=== PATIENT | female | born 1935 | race Asian ===

== ENCOUNTER 2017-07-29 07:04 | Inpatient (IN) | payer MEDICARE, OTHER ==
[2017-07-29] VITALS (7 sets, daily range): BP systolic 129–154; BP diastolic 54–85
[~2017-07-29] VITALS: Ht 160 cm; Wt 59.0 kg
--- NOTE | 2017-07-29 07:12 | Emergency Room Report ---
History of Present Illness General Chief Complaint: General Complaint Source: Patient, EMS Present Illness HPI Patient is a 82-year-old female brought in by EMS after increased palpitations and shortness of breath. Patient had prior history of cardiac bypass. The patient noted have increased difficulty with palpitations. The patient had multiple medications. The patient was noted to have increased fever on the first day of illness. Patient stated she had recently been seen started on Tamiflu. She had not been vomiting or having diarrhea. She reports having cardiac bypass approximately 3 years ago Allergies: Coded Allergies: PENICILLINS (Verified Allergy, Unknown, 07/29/17) SULFA (SULFONAMIDE ANTIBIOTICS) (Verified Allergy, Unknown, 07/29/17) Patient History Past Medical History: CAD PSxH Narrative bypass surgery 3 years ago Reviewed Nursing Documentation: PMH: Agreed, PSxH: Agreed Nursing Documentation-PMH Past Medical History: No History, Except For Hx Cardiac Problems: Yes - BYPASS Hx Hypertension: Yes Review of Systems All Other Systems: negative except mentioned in HPI Physical Exam Vital Signs Date Time Temp Pulse Resp B/P (MAP) Pulse Ox O2 Delivery O2 Flow Rate FiO2 07/29/17 07:04 98.2 90 20 178/84 99 Room Air Sp02 EP Interpretation: reviewed, normal General Appearance: normal inspection, well appearing, no apparent distress, alert, GCS 15 Head: atraumatic ENT: normal ENT inspection, hearing grossly normal, normal voice Neck: normal inspection, full range of motion, supple, no bony tend Respiratory: normal inspection, lungs clear, normal breath sounds, no respiratory distress, no retraction, no wheezing Cardiovascular #1: regular rate, rhythm, no edema Gastrointestinal: normal inspection, normal bowel sounds, non tender, soft, no guarding, no hernia Genitourinary: no CVA tenderness Musculoskeletal: normal inspection, back normal, normal range of motion Neurologic: normal inspection, alert, oriented x3, responsive, city engineer III-XII nml as tested, motor strength/tone normal, speech normal Psychiatric: normal inspection, judgement/insight normal, mood/affect normal Skin: normal inspection, normal color, no rash Medical Decision Making Diagnostic Impression: Primary Impression: Palpitation Additional Impressions: Generalized weakness Atrial bigeminy Coronary artery disease ER Course Patient presented for palpitations. The differential diagnosis included was not limited to arrhythmia, thyroid storm, sepsis, anemia, myocardial infarction , alcohol withdrawal, stimulant abuse, caffeine overdose among others. Because of complexity of patient's case laboratory testing and imaging studies were ordered. Laboratory testing showed evidence of mild hypokalemia. Patient given oral potassium. EKG interpreted by me showed normal sinus rhythm with a rate of [address] or T wave changes QTC was 474. The patient was given IV magnesium. Dr. Zack Royal was contacted for inpatient management. This medical record is generated with [employer] lining maker hand software. There may be some lining maker hand discrepancies related to use of this software Labs Test 07/29/17 07:45 07/29/17 08:00 White Blood Count 3.1 K/UL (4.8-10.8) Red Blood Count 4.03 M/UL (4.20-5.40) Hemoglobin 13.5 G/DL (12.0-16.0) Hematocrit 39.0 % (37.0-47.0) Mean Corpuscular Volume 97 FL (80-99) Mean Corpuscular Hemoglobin 33.4 PG (27.0-31.0) Mean Corpuscular Hemoglobin Concent 34.5 G/DL (32.0-36.0) Red Cell Distribution Width 11.8 % (11.6-14.8) Platelet Count 224 K/UL (150-450) Mean Platelet Volume 6.6 FL (6.5-10.1) Neutrophils (%) (Auto) % (45.0-75.0) Lymphocytes (%) (Auto) % (20.0-45.0) Monocytes (%) (Auto) % (1.0-10.0) Eosinophils (%) (Auto) % (0.0-3.0) Basophils (%) (Auto) % (0.0-2.0) Differential Total Cells Counted 100 Neutrophils % (Manual) 46 % (45-75) Lymphocytes % (Manual) 43 % (20-45) Monocytes % (Manual) 9 % (1-10) Eosinophils % (Manual) 1 % (0-3) Basophils % (Manual) 1 % (0-2) Band Neutrophils 0 % (0-8) Platelet Estimate Adequate Platelet Morphology Normal Red Blood Cell Morphology Normal Sodium Level 143 MMOL/L (136-145) Potassium Level 3.3 MMOL/L (3.5-5.1) Chloride Level 106 MMOL/L (98-107) Carbon Dioxide Level 29 MMOL/L (21-32) Anion Gap 8 mmol/L (5-15) Blood Urea Nitrogen 15 mg/dL (7-18) Creatinine 0.9 MG/DL (0.55-1.30) Estimat Glomerular Filtration Rate mL/min (>60) Glucose Level 152 MG/DL (74-106) Lactic Acid Level 1.30 mmol/L (0.66-2.22) Calcium Level 9.3 MG/DL (8.5-10.1) Phosphorus Level 4.4 MG/DL (2.5-4.9) Magnesium Level 2.2 MG/DL (1.8-2.4) Total Bilirubin 0.3 MG/DL (0.2-1.0) Aspartate Amino Transf (AST/SGOT) 33 U/L (15-37) Alanine Aminotransferase (ALT/SGPT) 40 U/L (12-78) Alkaline Phosphatase 77 U/L (46-116) Total Creatine Kinase 198 U/L (26-308) Creatine Kinase MB 1.9 NG/ML (0.0-3.6) Creatine Kinase MB Relative Index 0.9 Troponin I 0.000 ng/mL (0.000-0.056) Total Protein 8.5 G/DL (6.4-8.2) Albumin 3.6 G/DL (3.4-5.0) Globulin 4.9 g/dL Albumin/Globulin Ratio 0.7 (1.0-2.7) Urine Color Pale yellow Urine Appearance Clear Urine pH 6 (4.5-8.0) Urine Specific [place] 1.010 (1.005-1.035) Urine Protein Negative (NEGATIVE) Urine Glucose (UA) Negative (NEGATIVE) Urine Ketones Negative (NEGATIVE) Urine Occult Blood 3+ (NEGATIVE) Urine Nitrite Negative (NEGATIVE) Urine Bilirubin Negative (NEGATIVE) Urine Urobilinogen Normal MG/DL (0.0-1.0) Urine Leukocyte Esterase Negative (NEGATIVE) Urine RBC 5-10 /HPF (0 - 2) Urine WBC 0-2 /HPF (0 - 2) Urine Squamous Epithelial Cells Occasional /LPF Urine Bacteria Occasional /HPF (NONE) EKG Diagnostic Results Rate: normal - 76 Rhythm: NSR ST Segments: no acute changes Last Vital Signs Date Time Temp Pulse Resp B/P (MAP) Pulse Ox O2 Delivery O2 Flow Rate FiO2 07/29/17 07:04 98.2 90 20 178/84 99 Room Air Status: unchanged Disposition: ADMITTED INPATIENT Condition: Serious Jose E Reina Jul 29, 2017 07:12
[2017-07-29] MEDS ORDERED: FENOFIBRATE43 MG ORAL (07:34)
[2017-07-29] MEDS ORDERED: PROMETHAZINE-D118 ML ORAL (07:34)
[2017-07-29] MEDS ORDERED: OMEGA-31000 M1 PO (07:34)
[2017-07-29] MEDS ORDERED: ATORVASTATIN CA40 MG ORAL (07:34)
[2017-07-29] MEDS ORDERED: FOLIC ACID1 MG ORAL (07:34)
[2017-07-29] MEDS ORDERED: NITROGLYCERIN0.4 MG SL (07:34)
[2017-07-29] MEDS ORDERED: OYSCO 500+D TA1 EAC1 PO (07:34)
[2017-07-29] MEDS ORDERED: CARVEDILOL3.125 MG ORAL (07:34)
[2017-07-29] MEDS ORDERED: OLMESARTAN MEDOX5 MG PO (07:34)
[2017-07-29 08:25] LABS: HEMOGLOBIN 13.5 G/DL (12.0-16.0); MEAN CORPUSCULAR VOLUME 97 FL (80-99); PLATELET COUNT 224 K/UL (150-450); RED BLOOD COUNT 4.03 M/UL (4.20-5.40); RED CELL DISTRIBUTION WIDTH 11.8 % (11.6-14.8); WHITE BLOOD COUNT 3.1 K/UL (4.8-10.8)
[2017-07-29 08:33] LABS: ANION GAP 8 mmol/L (5-15); BLOOD UREA NITROGEN 15 mg/dL (7-18); CALCIUM 9.3 MG/DL (8.5-10.1); CARBON DIOXIDE 29 MMOL/L (21-32); CHLORIDE 106 MMOL/L (98-107); CREATININE 0.9 MG/DL (0.55-1.30); POTASSIUM 3.3 MMOL/L (3.5-5.1); SODIUM 143 MMOL/L (136-145)
[2017-07-29 08:43] LABS: APPEARANCE,URINE CLEAR; BILIRUBIN, URINE NEGATIVE (NEGATIVE); COLOR,URINE PALE YELLOW; GLUCOSE, URINE (UA) NEGATIVE (NEGATIVE); KETONES,URINE NEGATIVE (NEGATIVE); LEUKOCYTE ESTERASE ,URINE NEGATIVE (NEGATIVE); NITRITE,URINE NEGATIVE (NEGATIVE); PH,URINE 6 (4.5-8.0); PROTEIN,URINE NEGATIVE (NEGATIVE); UROBILINOGEN,URINE NORMAL MG/DL (0.0-1.0)
[2017-07-29] MEDS: Sodium Chloride 500ML 550 ML IV SCH ×4 (08:49→16:45)
[2017-07-29 08:57] LABS: ALANINE AMINOTRANSFERASE 40 U/L (12-78); ALBUMIN 3.6 G/DL (3.4-5.0); ALBUMIN/GLOBULIN RATIO 0.7 (1.0-2.7); ALKALINE PHOSPHATASE 77 U/L (46-116); ASPARTATE AMINO TRANSFERASE 33 U/L (15-37); BILIRUBIN,TOTAL 0.3 MG/DL (0.2-1.0); CKMB 1.9 NG/ML (0.0-3.6); CREATINE KINASE 198 U/L (26-308); PHOSPHORUS 4.4 MG/DL (2.5-4.9)
--- NOTE | 2017-07-29 11:42 | Diagnostic Imaging Report ---
Indication: Dyspnea Technique: XRAY Chest 1v Comparison: None Findings: Heart is borderline enlarged. Atherosclerotic calcifications noted in the aortic arch. There is no focal airspace consolidation, pleural effusion or pneumothorax. No acute osseous abnormality seen. Radiodensities projecting over the midline may be external to the patient. Impression: No radiographic evidence of acute cardiopulmonary disease.
[2017-07-29] MEDS ORDERED: Nitroglycerin Subl 0.4mg tab SL PRN (14:15)
[2017-07-29] MEDS ORDERED: Calcium Carbonate 500mg w/Vit D 200iu tab ORAL ONE (14:15)
[2017-07-29] MEDS: Calcium Carbonate 500mg w/Vit D 200iu tab ORAL SCH (18:38)
[2017-07-29] MEDS: Atorvastatin 20mg tab ORAL SCH (20:41)
[2017-07-29] MEDS: Heparin 5000 units/ml inj SUBQ SCH (20:42)
--- NOTE | 2017-07-29 23:15 | History and Physical Report ---
DATE OF ADMISSION: 07/29/2017 REASON FOR ADMISSION: Chest pain, possible acute coronary syndrome. HISTORY OF PRESENT ILLNESS: This is an 82-year-old female brought in with palpitations and shortness of breath. The patient with history of prior coronary disease and cardiac bypass. The patient with increasing difficulty due to recurrent palpitations. The patient was noted to have some fevers over the past day. The patient was recently started on Tamiflu, unclear if the influenza positive. The patient was seen and evaluated in the emergency room and felt to require an admission for possible cardiac issues. The patient denies any other complaints. No ill contacts. No recent travel. No recent trauma. PAST MEDICAL HISTORY: Noted and reviewed, coronary artery disease, bypass surgery. The patient also with history of hypercholesterolemia, history of possible hyperlipidemia. MEDICATIONS: Reviewed. ALLERGIES: Reviewed. PHYSICAL EXAMINATION: GENERAL: The patient is a well-developed female, advanced age. VITAL SIGNS: Blood pressure 134/61, heart rate 62, temperature 97.8, respiratory rate 16, and saturation is 98%. HEENT: Fairly negative. Extraocular movements were intact. NECK: Supple. No adenopathy. LUNGS: Clear and symmetric. CARDIAC: S1 and S2. Regular rate and rhythm without murmurs, rubs, or gallops. ABDOMEN: Soft, nontender, and nondistended. EXTREMITIES: No cyanosis, clubbing, or edema. NEUROLOGICAL: Grossly nonfocal. SKIN: Reviewed. LABORATORY DATA: Reviewed. Troponin is negative. Electrolytes fairly normal except creatinine 3.3. Glucose is 152. White count is 3.1, platelets are within normal limits. EKG reviewed. IMPRESSIONS: 1. Intermittent palpitations of unclear etiology. 2. Chest pain, possible acute coronary syndrome. 3. Viral syndrome. 4. EKG, without any acute changes. 5. History of coronary artery disease. 6. History of coronary artery bypass graft. RECOMMENDATION: Resume medications. Obtain cardiology evaluation. Serial troponins. IV hydration as needed. Monitor for change and recommend further and discharge when the patient is stable. Zack Royal M.D. DR: Adelaide JOB#: [id number] CC:
[2017-07-30 00:11] VITALS: BP 121/60
[2017-07-30 04:32] VITALS: BP 103/56
[2017-07-30 05:18] LABS: ALANINE AMINOTRANSFERASE 40 U/L (12-78); ALBUMIN 2.9 G/DL (3.4-5.0); ALBUMIN/GLOBULIN RATIO 0.7 (1.0-2.7); ALKALINE PHOSPHATASE 68 U/L (46-116); ANION GAP 8 mmol/L (5-15); ASPARTATE AMINO TRANSFERASE 32 U/L (15-37); BILIRUBIN,TOTAL 0.2 MG/DL (0.2-1.0); BLOOD UREA NITROGEN 13 mg/dL (7-18); CALCIUM 9.1 MG/DL (8.5-10.1); CARBON DIOXIDE 27 MMOL/L (21-32); CHLORIDE 108 MMOL/L (98-107); CHOLESTEROL 148 MG/DL (< 200); CREATININE 0.8 MG/DL (0.55-1.30); HDL CHOLESTEROL 55 MG/DL (40-60); POTASSIUM 3.9 MMOL/L (3.5-5.1); SODIUM 143 MMOL/L (136-145); TRIGLYCERIDES 125 MG/DL (30-150)
--- NOTE | 2017-07-30 07:39 | General Progress Note ---
Assessment/Plan Assessment/Plan IMPRESSIONS: 1. Palpitations of unclear etiology. 2. Chest pain, possible acute coronary syndrome. 3. Viral syndrome. 4. EKG, without any acute changes. 5. History of coronary artery disease. 6. History of coronary artery bypass graft. PLAN care noted cards clearance follow up and monitor dc once cleared impression, plan, and exam edited and reviewed in detail care discussed with RN Subjective Allergies: Coded Allergies: PENICILLINS (Verified Allergy, Unknown, 07/29/17) SULFA (SULFONAMIDE ANTIBIOTICS) (Verified Allergy, Unknown, 07/29/17) Subjective care noted reviewed and edited Objective Last 24 Hour Vital Signs Date Time Temp Pulse Resp B/P (MAP) Pulse Ox O2 Delivery O2 Flow Rate FiO2 07/30/17 04:32 98.5 61 18 103/56 Room Air 07/30/17 04:00 51 07/30/17 00:11 96.7 67 18 121/60 97 Room Air 07/30/17 00:00 59 07/29/17 20:41 65 139/76 07/29/17 20:05 98.1 65 18 139/76 97 Room Air 07/29/17 20:00 64 07/29/17 17:39 97.8 75 16 154/68 99 Room Air 07/29/17 17:20 75 16 154/68 99 Room Air 07/29/17 14:36 97.8 62 16 134/61 98 Room Air 07/29/17 12:26 73 16 153/70 99 Room Air 07/29/17 11:33 97.0 68 17 129/68 98 Room Air 07/29/17 09:30 79 16 131/85 98 Room Air 07/29/17 08:14 97.0 89 18 149/54 100 Room Air Intake and Output 07/29/17 07/30/17 19:00 07:00 Intake Total 600 ml Output Total 275 ml 500 ml Balance 325 ml -500 ml Intake IV Total 600 ml Output Urine Total 275 ml 500 ml # Voids 1 Laboratory Tests 07/29/17 07:45: White Blood Count 3.1L, Red Blood Count 4.03L, Hemoglobin 13.5, Hematocrit 39.0 , Mean Corpuscular Volume 97, Mean Corpuscular Hemoglobin 33.4H, Mean Corpuscular Hemoglobin Concent 34.5, Red Cell Distribution Width 11.8, Platelet Count 224, Mean Platelet Volume 6.6, Neutrophils (%) (Auto) , Lymphocytes (%) ( Auto) , Monocytes (%) (Auto) , Eosinophils (%) (Auto) , Basophils (%) (Auto) , Differential Total Cells Counted 100, Neutrophils % (Manual) 46, Lymphocytes % ( Manual) 43, Monocytes % (Manual) 9, Eosinophils % (Manual) 1, Basophils % ( Manual) 1, Band Neutrophils 0, Platelet Estimate Adequate, Platelet Morphology Normal, Red Blood Cell Morphology Normal, Sodium Level 143, Potassium Level 3.3L , Chloride Level 106, Carbon Dioxide Level 29, Anion Gap 8, Blood Urea Nitrogen 15, Creatinine 0.9, Estimat Glomerular Filtration Rate , Glucose Level 152H, Lactic Acid Level 1.30, Calcium Level 9.3, Phosphorus Level 4.4, Magnesium Level 2.2, Total Bilirubin 0.3, Aspartate Amino Transf (AST/SGOT) 33, Alanine Aminotransferase (ALT/SGPT) 40, Alkaline Phosphatase 77, Total Creatine Kinase 198, Creatine Kinase MB 1.9, Creatine Kinase MB Relative Index 0.9, Troponin I 0.000, Total Protein 8.5H, Albumin 3.6, Globulin 4.9, Albumin/Globulin Ratio 0.7L 07/29/17 08:00: Urine Color Pale yellow, Urine Appearance Clear, Urine pH 6, Urine Specific [place] 1.010, Urine Protein Negative, Urine Glucose (UA) Negative, Urine Ketones Negative, Urine Occult Blood 3+H, Urine Nitrite Negative, Urine Bilirubin Negative, Urine Urobilinogen Normal, Urine Leukocyte Esterase Negative , Urine RBC 5-10H, Urine WBC 0-2, Urine Squamous Epithelial Cells Occasional, Urine Bacteria Occasional 07/30/17 04:00: Sodium Level 143, Potassium Level 3.9, Chloride Level 108H, Carbon Dioxide Level 27, Anion Gap 8, Blood Urea Nitrogen 13, Creatinine 0.8, Estimat Glomerular Filtration Rate , Glucose Level 108H, Calcium Level 9.1, Total Bilirubin 0.2, Aspartate Amino Transf (AST/SGOT) 32, Alanine Aminotransferase ( ALT/SGPT) 40, Alkaline Phosphatase 68, Total Protein 7.0, Albumin 2.9L, Globulin 4.1, Albumin/Globulin Ratio 0.7L, Pro-B-Type Natriuretic Peptide 241H, Triglycerides Level 125, Cholesterol Level 148, LDL Cholesterol 56, HDL Cholesterol 55, Cholesterol/HDL Ratio 2.7L, Thyroid Stimulating Hormone (TSH) 1.001 07/30/17 04:05: Troponin I 0.003 Height (Feet): 5 Height (Inches): 3.00 Weight (Pounds): 130 Objective GENERAL: The patient is a well-developed female, advanced age. HEENT: Fairly negative. Extraocular movements were intact. NECK: Supple. No adenopathy. LUNGS: Clear and symmetric. CARDIAC: S1 and S2. Regular rate and rhythm without murmurs, rubs, or gallops. ABDOMEN: Soft, nontender, and nondistended. EXTREMITIES: No cyanosis, clubbing, or edema. NEUROLOGICAL: Grossly nonfocal. SKIN: Reviewed. ALIVIA JAMES Jul 30, 2017 07:39
[2017-07-30 08:11] VITALS: BP 159/89
[2017-07-30] MEDS: Calcium Carbonate 500mg w/Vit D 200iu tab ORAL SCH ×2 (09:56→18:39)
[2017-07-30] MEDS: Heparin 5000 units/ml inj SUBQ SCH ×2 (10:03→20:34)
[2017-07-30 12:00] VITALS: BP 135/76
[2017-07-30 16:00] VITALS: BP 119/66
[2017-07-30 19:52] VITALS: BP 147/84
[2017-07-30] MEDS: Atorvastatin 20mg tab ORAL SCH (20:32)
[2017-07-31 00:21] VITALS: BP 120/68
--- NOTE | 2017-07-31 01:01 | Progress Note ---
DATE: 07/30/2017 CARDIOLOGY PROGRESS NOTE SUBJECTIVE: The patient has occasional palpitations. No chest pain or shortness of breath. Troponin levels are negative. nuclear monitoring technician reveals sinus with rare premature ventricular contractions, unifocal and rare atrial bigeminy. OBJECTIVE: VITAL SIGNS: Blood pressure 133/56, pulse 61, and respiratory rate 18. NECK: Supple. LUNGS: Clear. CARDIAC: Regular rhythm and rate. Normal S1 and S2 with a fourth heart sound. ABDOMEN: Soft. EXTREMITIES: No edema. IMPRESSION: 1. Acute coronary syndrome. 2. Nonsustained ventricular ectopy. 3. Atrial bigeminy. 4. Probable viral syndrome. 5. Ischemic heart disease with prior coronary artery bypass graft. PLAN: 1. Titrate beta-yanet. 2. Continue anti-platelet therapy and anti-lipid drugs. 3. Follow up lipid panel. 4. No role for antiarrhythmics. 5. Check echocardiogram. 6. Consider Lexiscan for assessment of coronary flow reserve. Jose Honeycutt M.D. DR: SHANNON JOB#: [id number] CC:
[2017-07-31 04:00] VITALS: BP 136/70
--- NOTE | 2017-07-31 05:30 | Consultation ---
DATE OF CONSULTATION: 07/29/2017 CARDIOLOGY CONSULT CONSULTING PHYSICIAN: Jose Honeycutt M.D. REQUESTING PHYSICIAN: Zack Royal M.D. REASON FOR CONSULT: Chest pain, shortness of breath, and palpitations. HISTORY OF PRESENT ILLNESS: This is an 82-year-old female. She has a history of coronary artery disease with prior coronary artery bypass graft surgery. She has had several days of increasing palpitations. She also had some fevers and congestion with shortness of breath. She was started on Tamiflu as an outpatient. The patient has not had any dizziness or loss of consciousness. PAST MEDICAL HISTORY: CAD with history of coronary artery bypass graft, hyperlipidemia, and hypertension. MEDICATIONS: Reviewed and reconciled. ALLERGIES: Penicillin and sulfa. SOCIAL HISTORY: Negative for smoking, alcohol, or substance abuse. FAMILY HISTORY: Noncontributory. REVIEW OF SYSTEMS: She has had some fevers. No chills. No cough or sputum production. She is on Tamiflu. No history of malignant arrhythmias in the past or syncope. No history of seizure or stroke. No known history of diabetes mellitus. No history of asthma or blood clotting. PHYSICAL EXAMINATION: VITAL SIGNS: Afebrile, blood pressure 178/84, pulse 90, respiratory rate 20, and oxygen saturation on room air 99%. NECK: Supple. LUNGS: Clear. CARDIAC: Regular. Normal S1 and S2 with no murmur. Median sternotomy scar. ABDOMEN: Soft, nontender. EXTREMITIES: No edema. LABORATORY DATA: Troponin negative. Magnesium 2.2, potassium 3.3, BUN 15, and creatinine 0.9. Hemoglobin 13 and white count 3. EKG, sinus rhythm with no acute abnormality. Chest radiograph, no acute process. Cardiac monitored, sinus rhythm with occasional PVC, also with atrial bigeminy. IMPRESSION: 1. Possible acute coronary syndrome. 2. Atrial bigeminy. 3. Nonsustained ventricular ectopy. 4. Ischemic heart disease with prior coronary artery bypass grafting. 5. Possible influenza, on Tamiflu. 6. History of hyperlipidemia. PLAN: 1. Serial cardiac monitoring. 2. Serial troponin. 3. Titrate antianginal regimen. 4. DVT prophylaxis. 5. Consider further assessment of coronary flow reserve. Jose Honeycutt M.D. DR: LEONORA JOB#: [id number] CC:
[2017-07-31 08:00] VITALS: BP 136/77
[2017-07-31] MEDS: Aspirin Baby 81mg ORAL SCH (09:00)
--- NOTE | 2017-07-31 10:14 | General Progress Note ---
Assessment/Plan Assessment/Plan IMPRESSIONS: 1. Palpitations of unclear etiology. 2. Chest pain, possible acute coronary syndrome. 3. Viral syndrome. 4. EKG, without any acute changes. 5. History of coronary artery disease. 6. History of coronary artery bypass graft. PLAN care noted cards clearance pending labs reviewed follow up and monitor dc once cleared by cards possible lexiscan impression, plan, and exam edited and reviewed in detail care discussed with RN Subjective Allergies: Coded Allergies: PENICILLINS (Verified Allergy, Unknown, 07/29/17) SULFA (SULFONAMIDE ANTIBIOTICS) (Verified Allergy, Unknown, 07/29/17) Subjective care noted reviewed and edited tele noted cards noted Objective Last 24 Hour Vital Signs Date Time Temp Pulse Resp B/P (MAP) Pulse Ox O2 Delivery O2 Flow Rate FiO2 07/31/17 08:00 97.7 71 18 136/77 96 Room Air 07/31/17 04:00 68 07/31/17 04:00 97.9 73 18 136/70 98 Room Air 07/31/17 00:21 97.8 72 17 120/68 97 Room Air 07/31/17 00:00 65 07/30/17 20:31 75 147/84 07/30/17 20:00 69 07/30/17 19:52 98.2 75 17 147/84 97 Room Air 07/30/17 16:00 66 07/30/17 16:00 97.9 67 18 119/66 97 Room Air 07/30/17 12:00 97.7 66 18 135/76 99 Room Air 07/30/17 12:00 62 Intake and Output 07/30/17 07/31/17 19:00 07:00 Intake Total 730 ml Balance 730 ml Intake Oral 730 ml # Voids 3 Laboratory Tests 07/31/17 03:05: Troponin I 0.002 Height (Feet): 5 Height (Inches): 3.00 Weight (Pounds): 130 Objective GENERAL: The patient is a well-developed female, advanced age. HEENT: Fairly negative. Extraocular movements were intact. NECK: Supple. No adenopathy. LUNGS: Clear and symmetric. CARDIAC: S1 and S2. Regular rate and rhythm without murmurs, rubs, or gallops. ABDOMEN: Soft, nontender, and nondistended. EXTREMITIES: No cyanosis, clubbing, or edema. NEUROLOGICAL: Grossly nonfocal. SKIN: Reviewed. ALIVIA JAMES Jul 31, 2017 10:14
[2017-07-31] MEDS: Calcium Carbonate 500mg w/Vit D 200iu tab ORAL SCH ×2 (10:36→18:34)
[2017-07-31] MEDS: Carvedilol 6.25mg Tab ORAL SCH ×2 (10:37→20:45)
[2017-07-31] MEDS: Heparin 5000 units/ml inj SUBQ SCH ×2 (10:40→20:46)
[2017-07-31 12:00] VITALS: BP 128/68
[2017-07-31 16:00] VITALS: BP 120/66
[2017-07-31 20:00] VITALS: BP 136/73
[2017-07-31] MEDS: Atorvastatin 20mg tab ORAL SCH (20:45)
[2017-08-01 00:31] VITALS: BP 128/65
[2017-08-01] MEDS ORDERED: Lexiscan 0.4mg/5ml syringe IV ONE ×2 (03:45→08:00)
[2017-08-01 04:12] VITALS: BP 114/64
[2017-08-01 08:00] VITALS: BP 141/76
--- NOTE | 2017-08-01 08:35 | General Progress Note ---
Assessment/Plan Assessment/Plan IMPRESSIONS: 1. Palpitations of unclear etiology. 2. Chest pain, possible acute coronary syndrome. 3. Viral syndrome. 4. EKG, without any acute changes. 5. History of coronary artery disease. 6. History of coronary artery bypass graft. PLAN care noted cards clearance pending Lexiscan labs reviewed follow up and monitor dc home today pending results impression, plan, and exam edited and reviewed in detail care discussed with RN Subjective Allergies: Coded Allergies: PENICILLINS (Verified Allergy, Unknown, 07/29/17) SULFA (SULFONAMIDE ANTIBIOTICS) (Verified Allergy, Unknown, 07/29/17) Subjective care noted reviewed and edited tele noted cards noted- lexiscan ordered Objective Last 24 Hour Vital Signs Date Time Temp Pulse Resp B/P (MAP) Pulse Ox O2 Delivery O2 Flow Rate FiO2 08/01/17 04:12 97.3 74 21 114/64 94 08/01/17 04:00 54 08/01/17 00:31 97.0 63 20 128/65 96 Room Air 08/01/17 00:00 64 07/31/17 20:45 68 136/73 07/31/17 20:00 71 07/31/17 20:00 97.7 68 20 136/73 95 Room Air 07/31/17 16:00 97.3 63 18 120/66 100 Room Air 07/31/17 16:00 65 07/31/17 12:00 75 07/31/17 12:00 97.9 62 18 128/68 97 Room Air 07/31/17 10:37 71 136/77 07/31/17 10:36 136/77 Intake and Output 07/31/17 08/01/17 19:00 07:00 Intake Total 720 ml 120 ml Balance 720 ml 120 ml Intake Oral 720 ml 120 ml # Voids 4 1 Laboratory Tests 08/01/17 04:15: Troponin I 0.000 Height (Feet): 5 Height (Inches): 3.00 Weight (Pounds): 130 Objective GENERAL: The patient is a well-developed female, advanced age. HEENT: Fairly negative. Extraocular movements were intact. NECK: Supple. No adenopathy. LUNGS: Clear and symmetric. CARDIAC: S1 and S2. Regular rate and rhythm without murmurs, rubs, or gallops. ABDOMEN: Soft, nontender, and nondistended. EXTREMITIES: No cyanosis, clubbing, or edema. NEUROLOGICAL: Grossly nonfocal. SKIN: Reviewed. ALIVIA JAMES Aug 01, 2017 08:35
[2017-08-01] MEDS: Carvedilol 6.25mg Tab ORAL SCH ×2 (08:44→21:20)
[2017-08-01] MEDS: Calcium Carbonate 500mg w/Vit D 200iu tab ORAL SCH ×2 (08:46→17:16)
[2017-08-01] MEDS: Aspirin Baby 81mg ORAL SCH (08:46)
[2017-08-01] MEDS: Heparin 5000 units/ml inj SUBQ SCH ×2 (08:48→21:23)
--- NOTE | 2017-08-01 11:57 | Cardiology Report ---
APPROVED REPORT EXAM: Two-dimensional and M-mode echocardiogram with Doppler and color Doppler. INDICATION Coronary Artery Disease M-Mode DIMENSIONS IVSd1.0 (0.7-1.1cm)Left Atrium (MM)3.3 (1.6-4.0cm) LVDd4.3 (3.5-5.6cm)Aortic Root2.7 (2.0-3.7cm) PWd0.5 (0.7-1.1cm)Aortic Cusp Exc.1.5 (1.5-2.0cm) LVDs2.8 (2.5-4.0cm) PWs1.1 cm Normal left ventricular chamber size, systolic function and wall motion. Left ventricular ejection fraction estimated to be 55 %. No evidence of left ventricular hypertrophy. Anterior Echo-free space, may be due to pericardial fat or effusion. All other cardiac chamber sizes are within normal limits. Focal aortic valve sclerosis with adequate cusp excursion. Thickened mitral valve leaflets with normal excursion. Mild mitral annulus and aortic root calcification. Normal pulmonic valve structure. Normal tricuspid valve structure. IVC at normal size with physiologic collapse. A color flow and spectral Doppler study was performed and revealed: No aortic regurgitation. Mild to moderate mitral regurgitation. Mitral diastolic velocities suggest mild left ventricular dysfunction (Grade I ). Mild tricuspid regurgitation. Tricuspid systolic velocities suggests peak right ventricular systolic pressure of 37 mmHg, consistent with mild pulmonary hypertension. Moderate pulmonic regurgitation present.
[2017-08-01 12:00] VITALS: BP 135/69
--- NOTE | 2017-08-01 13:15 | Progress Note ---
DATE: 07/31/2017 CARDIOLOGY PROGRESS NOTE SUBJECTIVE: No chest pain. Occasional palpitations. No shortness of breath. Monitored sinus with unifocal PVCs and rare PACs. OBJECTIVE: VITAL SIGNS: Blood pressure 136/77, pulse 71, respiratory rate 18, and afebrile. LUNGS: Clear. CARDIAC: Regular. ABDOMEN: Soft. EXTREMITIES: No edema. LABORATORY DATA: Troponin negative. Albumin 2.9. Natriuretic peptide 241. IMPRESSION: 1. No signs of acute congestive heart failure. 2. No signs of acute myocardial infarction. 3. Ischemic heart disease with prior coronary artery bypass graft. 4. Nonsustained ventricular ectopy. PLAN: 1. Lexiscan to assess coronary flow reserve. 2. No role for antiarrhythmics at this time. Jose Honeycutt M.D. DR: FIONA JOB#: [id number] CC:
[2017-08-01 16:00] VITALS: BP 131/71
[2017-08-01 20:29] VITALS: BP 132/63
[2017-08-01] MEDS: Atorvastatin 20mg tab ORAL SCH (21:21)
[2017-08-02 00:12] VITALS: BP 108/57
--- NOTE | 2017-08-02 03:17 | Progress Note ---
DATE: 08/01/2017 CARDIOLOGY PROGRESS NOTE SUBJECTIVE: The patient is without chest pain or shortness of breath. Troponins remained negative. Monitor remains sinus with occasional premature ventricular contractions. OBJECTIVE: VITAL SIGNS: Blood pressure 132/63, pulse 68, respirations 18, and afebrile. LUNGS: Clear. CARDIAC: Regular. Normal S1, S2 with a fourth heart sound. ABDOMEN: Soft. EXTREMITIES: No edema. IMPRESSION: 1. Atrial and ventricular ectopy. 2. Ischemic heart disease with prior coronary artery bypass graft. 3. Possible acute coronary syndrome. PLAN: 1. Continue current management and medications. 2. Lexiscan for assessment of coronary flow reserve planned. 3. Discharge planning to follow. Jose Honeycutt M.D. DR: EVA JOB#: [id number] CC:
[2017-08-02 04:00] VITALS: BP 110/61
--- NOTE | 2017-08-02 06:58 | General Progress Note ---
Assessment/Plan Assessment/Plan IMPRESSIONS: 1. Palpitations of unclear etiology. 2. Chest pain, possible acute coronary syndrome. 3. Viral syndrome. 4. EKG, without any acute changes. 5. History of coronary artery disease. 6. History of coronary artery bypass graft. PLAN care noted cards clearance pending Lexiscan labs reviewed follow up and monitor dc home today pending results d/w cardiology impression, plan, and exam edited and reviewed in detail care discussed with RN Subjective Allergies: Coded Allergies: PENICILLINS (Verified Allergy, Unknown, 07/29/17) SULFA (SULFONAMIDE ANTIBIOTICS) (Verified Allergy, Unknown, 07/29/17) Subjective care noted reviewed and edited tele noted cards noted- lexiscan ordered? unclear if done Objective Last 24 Hour Vital Signs Date Time Temp Pulse Resp B/P (MAP) Pulse Ox O2 Delivery O2 Flow Rate FiO2 08/02/17 04:00 97.5 60 18 110/61 98 Room Air 08/02/17 03:15 55 08/02/17 00:12 98.4 64 18 108/57 97 Room Air 08/01/17 23:29 63 08/01/17 21:20 68 132/63 08/01/17 20:46 60 08/01/17 20:29 97.7 68 18 132/63 94 Room Air 08/01/17 16:00 96.9 69 19 131/71 100 Room Air 08/01/17 16:00 64 08/01/17 12:00 55 08/01/17 12:00 96.8 59 18 135/69 100 Room Air 08/01/17 08:47 141/76 08/01/17 08:44 61 141/76 08/01/17 08:00 56 08/01/17 08:00 96.3 61 19 141/76 100 Room Air Intake and Output 08/01/17 08/02/17 19:00 07:00 Intake Total 236 ml 236 ml Output Total 400 ml Balance 236 ml -164 ml Intake Oral 236 ml 236 ml Output Urine Total 400 ml # Voids 1 1 Height (Feet): 5 Height (Inches): 3.00 Weight (Pounds): 130 Objective GENERAL: The patient is a well-developed female, advanced age. HEENT: Fairly negative. Extraocular movements were intact. NECK: Supple. No adenopathy. LUNGS: Clear and symmetric. CARDIAC: S1 and S2. Regular rate and rhythm without murmurs, rubs, or gallops. ABDOMEN: Soft, nontender, and nondistended. EXTREMITIES: No cyanosis, clubbing, or edema. NEUROLOGICAL: Grossly nonfocal. SKIN: Reviewed. ALIVIA JAMES Aug 02, 2017 06:58
[2017-08-02 08:00] VITALS: BP 119/62
[2017-08-02] MEDS: Calcium Carbonate 500mg w/Vit D 200iu tab ORAL SCH ×2 (08:16→17:44)
[2017-08-02] MEDS: Aspirin Baby 81mg ORAL SCH (08:16)
[2017-08-02] MEDS: Carvedilol 6.25mg Tab ORAL SCH (08:16)
[2017-08-02] MEDS: Heparin 5000 units/ml inj SUBQ SCH (08:17)
[2017-08-02 11:54] VITALS: BP 119/63
[2017-08-02 15:30] VITALS: BP 113/67
--- NOTE | 2017-08-02 16:04 | Diagnostic Imaging Report ---
Indication: chest pain Technique: The study was conducted under the supervision of a floor installation mechanic. lexiscan (regadenoson) infusion over 10 seconds followed by intravenous administration of 29.1 mCi of technetium 99m Myoview was performed. Three plane SPECT imaging of the heart was then performed. A resting study was performed as part of the one-day protocol with 10.7 mCi of technetium 99m myoview injected intravenously at that time. Three plane SPECT imaging of the heart was obtained. Comparison: None Clinical data: 1. Clinical response: Non ischemic 2. Electrocardiographic response: Non ischemic Findings: The myocardial perfusion scan demonstrates no definite fixed or reversible perfusion defects. Left ventricular ejection fraction is estimated at 74%. IMPRESSION: Myocardial perfusion scan is negative
--- NOTE | 2017-08-03 03:45 | Progress Note ---
DATE: 08/02/2017 CARDIOLOGY PROGRESS NOTE SUBJECTIVE: The patient has no chest pain or shortness of breath. She has occasional palpitations. Monitored rhythm for the last several days since admission has revealed no sustained arrhythmias. Rare unifocal PVCs noted. OBJECTIVE: VITAL SIGNS: Blood pressure 110/60, pulse 60, and respirations 18. NECK: Supple. LUNGS: Clear. CARDIAC: Regular. Normal S1 and S2 with a fourth heart sound. EXTREMITIES: No edema. LABORATORY DATA: Myocardial perfusion scan reveals no ischemia. IMPRESSION: 1. Stable coronary flow reserve. 2. History of coronary artery bypass graft surgery. 3. No signs of malignant arrhythmia. 4. Premature ventricular contractions of no clinical significance. 5. Hypertension, controlled. 6. Sinus bradycardia of no clinical significance. PLAN: 1. We would not recommend any additional cardiac workup at this time. 2. We would continue current medication regimen. 3. We would not recommend any antiarrhythmic drug to suppress nonsustained ventricular ectopics. 4. Outpatient follow up. Jose Honeycutt M.D. DR: LINDA JOB#: [id number] CC:
--- NOTE | 2017-08-04 11:47 | Discharge Summary ---
Discharge Summary Hospital Course Date of Admission Jul 29, 2017 at 08:21 Date of Discharge Aug 02, 2017 at 19:50 Admitting Diagnosis Palpitation, influenza HPI Martha Santos is a 82 year old female who was admitted on Jul 29, 2017 at 08:21 for Palpitation/Influenza Hospital Course [id number] Discharge Discharge Disposition Patient was discharged to Home with Home Health(06) Discharge Diagnoses: Luh Owusu NP Aug 04, 2017 11:47
--- NOTE | 2017-08-04 14:57 | Cardiology Report ---
APPROVED REPORT EKG Measurement Heart [id number] AR [id number] Sinus bradycardia Right bundle branch block Abnormal ECG
--- NOTE | 2017-08-04 15:29 | Cardiology Report ---
APPROVED REPORT EKG Measurement Heart [id number] [place] [id number] Normal sinus rhythm Right bundle branch block Abnormal ECG
--- NOTE | 2017-08-04 19:15 | Discharge Summary 2 SIG ---
DATE OF ADMISSION: 07/29/2017 DATE OF DISCHARGE: 08/02/2017 [employer] SCARFER TENDER: Jose Honeycutt M.D. BRIEF HOSPITAL COURSE: The patient is an 82-year-old female, who was brought in from home due to palpitations and shortness of breath. The patient with history of prior coronary disease and cardiac bypass. She had increasing shortness of breath due to recurrent palpitations and was noted to have fever for the past day. The patient was recently started on Tamiflu unclear if influenza was positive. On evaluation at ED, labs showed mild hypokalemia. EKG was in normal sinus rhythm with no acute ST to T-wave changes. QTc was 474. Magnesium and potassium level was low and was given magnesium and potassium supplements. She was then admitted to telemetry for possible ACS and for evaluation of intermittent palpitations. She was given IV hydration and was seen by controls engineer. Cardiac enzymes were monitored. On monitor, the patient was sinus with unifocal PVCs and rare PACs. She had an echocardiogram done that showed ejection fraction of 55%. There was no aortic regurgitation. Cardiac enzymes were monitored. She underwent myocardial perfusion scan. Results were nonischemic. There was no definite fixed or reversible perfusion defect. LV ejection fraction estimated 74%. There was no need to start on antiarrhythmic drugs. The patient was cleared for discharge. She was eventually discharged home with home health. FINAL DIAGNOSES: 1. Palpitations of unclear etiology. 2. Acute viral syndrome. 3. Stable coronary flow reserve. 4. Premature ventricular contractions of no clinical significance. 5. Hypertension controlled. 6. Sinus bradycardia of no clinical significance. 7. No signs of malignant arrhythmia. 8. Coronary artery disease status post bypass graft. DISPOSITION: The patient was discharged home with home health. DISCHARGE MEDICATIONS: Refer to medication list. DISCHARGE INSTRUCTIONS: Follow up as outpatient in a week. Zack Royal M.D. I have been assigned to dictate discharge summary on this account and I was not involved in the patient's management. Luh Owusu N.P. DR: ABY JOB#: [id number] CC: WINTER
== END 2017-08-02 19:50 | disposition home health service (06) | DRG 310 ==
LOC: EDBD 07:04 → EMR 08:06 → 2E 08:21 → EDBEDREQ 16:29
DX: R00.2 Palpitations (principal); R00.1 Bradycardia, unspecified; Z95.1 Presence of aortocoronary bypass graft; I10 Essential (primary) hypertension; B34.9 Viral infection, unspecified; I25.10 Atherosclerotic heart disease of native coronary artery without angina pectoris; E78.00 Pure hypercholesterolemia, unspecified; E78.5 Hyperlipidemia, unspecified; R00.8 Other abnormalities of heart beat; I49.3 Ventricular premature depolarization; E87.6 Hypokalemia; Z88.0 Allergy status to penicillin; Z88.2 Allergy status to sulfonamides
CPT/HCPCS: 36415; 71045; 78452; 80053; 80061; 81003; 82550; 82553; 83605; 83735; 83880; 84100; 84443; 84484; 85007; 85025; 86710; 87040; 93005; 93017; 93306; 99285; J2785; J8499